=== PATIENT | male | born 1975 | race Caucasian/White ===

== ENCOUNTER 2021-04-06 16:27 | Emergency (ER) | payer OTHER ==
[~2021-04-06 16:27] MED LIST: IBUPROFEN800 MG PO; NORCO 5-325 TA1 EACH PO; PRINIVIL10 MG PO
[2021-04-06 16:52] LABS: HEMOGLOBIN 16.1 gm/dl (14.0-17.5); RED BLOOD COUNT 5.05 M/UL (4.20-5.50); WHITE BLOOD COUNT 13.9 K/UL (4.5-11.0)
[2021-04-06 17:16] LABS: BUN/CREATININE RATIO 17 (0-10)
== END 2021-04-06 23:30 | disposition short-term general hospital (02) ==
LOC: ER1 16:27 → CDU 18:06 → ER1 23:30
PROVIDERS: Emergency Medicine
DX: K80.20 Calculus of gallbladder without cholecystitis without obstruction (principal); K85.90 Acute pancreatitis without necrosis or infection, unspecified; Z20.822 Contact with and (suspected) exposure to COVID-19; I10 Essential (primary) hypertension; E87.6 Hypokalemia; D72.829 Elevated white blood cell count, unspecified; Z72.89 Other problems related to lifestyle; R74.01 Elevation of levels of liver transaminase levels; E80.6 Other disorders of bilirubin metabolism; Z87.438 Personal history of other diseases of male genital organs
CPT/HCPCS: 80053; 80061; 81001; 82550; 82553; 83690; 83874; 84484; 85025; 87040; 96374; 96375; 96376; 99285; J2270; J2405; J2543; Q9967; U0002